=== PATIENT | female | born 1960 | race Asian ===

== ENCOUNTER 2022-03-23 12:37 | Emergency (ER) | payer OTHER, SELFPAY ==
[2022-03-23 12:39] VITALS: BP 127/49; PULSE 60; RESP 16; TEMP 36.2; O2SAT 98; BMI 21.0
--- NOTE | 2022-03-23 13:05 | EDS_ITS ---
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 She has 2 relatives that are physicians. She has a machine at home to assess her INR. Daughter checked INR x2 and was elevated 8.0. Because of the bruising and elevated INR her doctor recommended she go to the emergency department. She denies headache. Denies change in vision. She denies bleeding from her gums. She denies cardiac respiratory symptoms. She denies black or maroon-colored stool. Denies blood in her stool. Denies blood in her urine. She does have a new bruise on her left arm. To her knowledge she had no trauma. Prior similar symptoms: No Recent Illness/Hospitalization: No PFSH PFS Medical History Afib Encounter for cardioversion procedure Epilepsy History of left heart catheterization (LHC) Myocardial infarct Rheumatic fever Home Medications levothyroxine 50 mcg tablet 50 mcg PO DAILY 03/23/22 [History Last Taken Unknown] sotalol 120 mg tablet (Sotalol AF) 120 mg PO BID 03/23/22 [History Last Taken Unknown] warfarin 3 mg tablet 3 mg PO SUMOWETHSA 03/23/22 [History Last Taken Unknown] warfarin 3 mg tablet 3.5 mg PO TUFR 03/23/22 [History Last Taken Unknown] Allergy/AdvReac Type Severity Reaction Status Date / Time No Known Allergies Allergy Verified 03/23/22 12:39 Surgical History (Updated 03/23/22 @ 12:53 by Cinthya Diallo) H/O mitral valve replacement with mechanical valve Social History (Updated 03/23/22 @ 13:[address] Luis Ritchie MD) household members: family Smoking Status: Never smoker substance use type: does not use ROS ROS ED Review of Systems ROS Unobtainable: other Details: Use of claims adjustor Constitutional Constitutional ED: Denies chills, fever(s) or subjective Eyes Eyes: Denies blurry vision, change in vision or diplopia ENT ENT ED: Reports other Details: Negative bleeding from gums ; Denies rhinorrhea or sore throat Cardiovascular Cardiovascular: Denies chest pain or palpitations Respiratory/Chest Respiratory/Chest: Denies cough, dyspnea or dyspnea on exertion Gastrointestinal Gastrointestinal: Reports other Details: Stool is dark due to iron tablets. ; Denies abdominal pain or melena Genitourinary Genitourinary ED: Denies dysuria, hematuria or urinary frequency Musculoskeletal Musculoskeletal: Denies arthralgias, back pain or myalgias Integumentary Denies rash Neurologic Neurologic: Denies headache(s), paresthesias or weakness Hematologic/Lymphatic Hematologic/Lymphatic: Reports anemia and easy bruising; Denies easy bleeding EXAM Physical Exam Const Vital Signs: 03/23/22 12:39 03/23/22 12:50 Temperature 97.1 F L Temperature Source Temporal Pulse Rate 60 Respiratory Rate 16 Respiratory Effort Normal Non-Labored Respiratory Pattern Normal Blood Pressure 127/49 H Blood Pressure Mean 75 Pulse Ox 98 Oxygen Delivery Method Room Air Positive well nourished and well developed General Appearance ED: well developed and NAD; Negative for cyanotic, diaphoretic or pallor HEENT Reports moist mucous membranes HEENT Narrative: Uvula midline. No deviation tongue with protrusion. No dental pathology or bleeding from gums noted. Ears normal. Nares patent. No blood noted in the right or left vestibule. Eyes PERRL and EOMs intact bilaterally Eyes Narrative: There is no subconjunctival hemorrhage noted. General Eye ED: Yes pale conjunctiva; Negative for scleral icterus Neck no lymphadenopathy, supple and no JVD Resp normal respiratory effort and clear to auscultation bilaterally Cardio regular rate, regular rhythm and no murmurs Rate: tachycardic and other Other Details: There is a metallic click noted due to prosthetic mitral valve. GI normal to inspection, nondistended, normoactive bowel sounds, non-tender and non-distended; Negative for hepatosplenomegaly Back/Spine no CVA tenderness Extremity normal to inspection General Extremety ED: Negative for edema General Extremity: Negative for edema Neuro oriented x3, CN's II-XII intact bilaterally and no sensory deficits noted Sensorium / Orientation: alert Psych mental status grossly normal Skin no rashes or lesions noted and skin turgor normal Skin Narrative: Garo is no left arm. General Skin Exam: Negative for jaundice or pallor MDM MDM MDM Narrative Medical decision making narrative: With reported elevated RR bruising will obtain PT/INR to assess. Patient denies change in diet. Patient denies taking antibiotics in last week or 2. There has been no change in her medication regimen. Lab Data Attestation: I reviewed the patient's lab results. Lab results narrative: INR is 1.9 which is subtherapeutic. Comprehensive metabolic panel is remarkable elevated BUN of 22 otherwise unremarkable. Labs: Laboratory Results - last 24 hr 03/23/22 03/23/22 13:10 13:10 PT 21.2 H INR 1.9 Sodium 140 Potassium 4.4 Chloride 107 Carbon Dioxide 30.0 Anion Gap 3 L BUN 22 H Creatinine 0.85 Estim Creat Clear Calc 53.58 Est GFR (MDRD) Af Amer 87 Est GFR (MDRD) Non-Af 72 BUN/Creatinine Ratio 25.9 H Glucose 110 H Calcium 9.4 Total Bilirubin 0.60 AST 36 ALT 60 H Alkaline Phosphatase 73 Total Protein 7.4 Albumin 3.7 Globulin 3.7 Albumin/Globulin Ratio 1.0 Discharge Plan Triage Chief Complaint: Abn Labs ED Provider: Luis Ritchie Dx/Rx/DC Orders Clinical Impression: Subtherapeutic anticoagulation, Anticoagulant long-term use, Traumatic ecchymosis of left upper arm Instructions: Bruises (Contusions) Prescriptions: No Action warfarin 3 mg Tablet 3 mg PO SUMOWETHSA warfarin 3 mg Tablet 3.5 mg PO TUFR sotalol [Sotalol AF] 120 mg Tablet 120 mg PO BID levothyroxine 50 mcg Tablet 50 mcg PO DAILY Primary Care Provider: ANDERSON PARADA Referrals: [facility] Doctor,Out of [NON-STAFF] - Activity Restrictions/Additional Instructions: Your INR is 1.9. Contact your primary care doctor to adjust your Coumadin dose. Disposition Disposition: Home, Self Care
[2022-03-23 13:28] LABS: International Normalized Ratio 1.9; Prothrombin Time (Protime)PT. 21.2 SECONDS (11.7-14.9)
[2022-03-23 13:35] LABS: AST(SGOT) 36 U/L (15-37); Alanine Aminotransfer ALT/SGPT 60 U/L (13-56); Albumin, Serum 3.7 g/dL (3.2-5.0); Alkaline Phosphatase 73 U/L (45-117); Anion Gap 3 (5-15); BUN 22 mg/dL (7-18); BUN/Creat Ratio 25.9 RATIO (10-20); Calcium,Total 9.4 mg/dL (8.5-10.1); Chloride 107 mmol/L (98-107); Creatinine, Serum 0.85 mg/dL (0.55-1.02); EST Glomerular Filtration Rate 72 mL/min (>60); Est Glom Filt Rate - Afr Amer 87 mL/min (>60); Estimated Creatinine Clearance 53.58 ml/min; Globulin 3.7 g/dL (2.2-4.2); Glucose 110 mg/dL (74-106); Potassium 4.4 mmol/L (3.5-5.1); Protein, Total 7.4 g/dL (6.4-8.2); Sodium Level 140 mmol/L (136-145)
== END 2022-03-23 13:58 | disposition home or self-care (01) ==
PROVIDERS: Emergency Provider Emergency Medicine; Visit Provider Emergency Medicine
DX: R79.1 Abnormal coagulation profile (principal); I48.91 Unspecified atrial fibrillation; G40.909 Epilepsy, unspecified, not intractable, without status epilepticus; I25.2 Old myocardial infarction; Z95.4 Presence of other heart-valve replacement; Z79.01 Long term (current) use of anticoagulants; Z79.02 Long term (current) use of antithrombotics/antiplatelets; Z79.899 Other long term (current) drug therapy
CPT/HCPCS: 80053; 85610; 99283; A4216